=== PATIENT | female | born 1935 | race Caucasian/White ===

== ENCOUNTER → 2016-10-16 | Outpatient (CLI) | payer MEDICARE, BC ==
[~2016-10-16] MED LIST: CHOL20003 PO; DIGO125T PO; DIGO250T PO; DILT30TA33 PO; EYEPROMISE PO; FURO20TA3 PO; LEVO75TA5 PO; LISI5TAB7 PO; MULT-658 PO; PEG31POW2 PO; POTA10TA11 PO; REGADENOSON 0.4 MG/5 ML SYRINGE ONE; RIVA20TA PO; VITA1CAP PO; [UNRECOGNIZED DRUG - CODE] PO
== END | disposition home or self-care (01) ==
LOC: CFH 08:26
PROVIDERS: ATTEND Internal Medicine Cardiovascular Disease
DX: I25.9 Chronic ischemic heart disease, unspecified (principal)
CPT/HCPCS: 78452; 93017; A9502; J2785

== ENCOUNTER → 2017-01-07 | Outpatient (CLI) | payer MEDICARE, BC ==
[~2017-01-07] MED LIST changes: +CHOL2000 PO; -CHOL20003 PO; -PEG31POW2 PO; +PEG31POW3 PO; -REGADENOSON 0.4 MG/5 ML SYRINGE ONE
[2017-01-07 12:38] LABS: HEMATOCRIT 53.7 % (34.6-47.8); HEMOGLOBIN 17.6 g/dL (11.7-16.4)
== END | disposition home or self-care (01) ==
LOC: CFH 11:41
PROVIDERS: ATTEND Internal Medicine
DX: I48.2 Chronic atrial fibrillation (principal)
CPT/HCPCS: 36415; 85025

== ENCOUNTER → 2017-10-29 | Outpatient (CLI) | payer MEDICARE, BC | LOC: CFH 14:45 → EDSTATUS 15:00 | PROVIDERS: ATTEND Internal Medicine Cardiovascular Disease | DX: I08.1 Rheumatic disorders of both mitral and tricuspid valves (principal); I47.2 Ventricular tachycardia; I48.91 Unspecified atrial fibrillation; I10 Essential (primary) hypertension; C50.919 Malignant neoplasm of unspecified site of unspecified female breast | CPT/HCPCS: 93306 ==

== ENCOUNTER → 2020-04-01 | Outpatient (CLI) | payer MEDICARE, BC ==
[~2020-04-01] MED LIST changes: -DIGO125T PO; +DIGO125T85 PO; -DIGO250T PO; +DIGO250T3 PO
== END | disposition home or self-care (01) ==
LOC: CFH 10:46
PROVIDERS: ATTEND Internal Medicine Cardiovascular Disease
DX: I08.8 Other rheumatic multiple valve diseases (principal); I27.20 Pulmonary hypertension, unspecified; I47.2 Ventricular tachycardia
CPT/HCPCS: 93306